=== PATIENT | male | born 1995 | race African-American/Black ===

== ENCOUNTER 2016-08-23 23:45 | Emergency (ER) | payer SELFPAY ==
[~2016-08-23] VITALS: Ht 165.1 cm; Wt 69.9 kg
[~2016-08-23 23:45] MED LIST: ADVAIR 100/501 DISK IH; AZITHROMYCIN250 MG PO; FLOVENT 44120 INHALA IH; IBUPROFEN600 MG PO; MEDROL DOSEPAK4 MG PO; PREDNISONE10 MG PO; PREDNISONE20 MG PO; PREDNISONE50 MG PO; PROAIR HFA8.5 GM IH; PROAIR RESPICL90 MCG IH; PROVENTIL HFA6.7 GM IH; PROVENTIL,2.5 MG/3 M IH; ROBITUSSIN AC,T10 ML PO; ULTRAM50 MG PO; VENTOLIN HFA18 GM IH; ZITHROMAX TRI-500 MG PO; ZITHROMAX Z-PA250 MG PO; ZITHROMAX250 MG PO; ZOFRAN ODT4 MG PO
[2016-08-24 01:02] LABS: ADD MIUA? YES; BILIRUBIN NEGATIVE; BLOOD NEGATIVE; COLOR YELLOW ((YELLOW)); GLUCOSE (STRIP) NEGATIVE; KETONES NEGATIVE; LEUKOCYTES LARGE; NITRITE NEGATIVE; PROTEIN (STRIP) 30; SPECIFIC GRAVITY 1.027 (1.000-1.030)
[2016-08-24 01:19] VITALS: BP 135/87
[2016-08-24 01:48] LABS: BACTERIA RARE; CASTS NONE SEEN /LPF; CRYSTALS NONE SEEN; EPITHELIAL CELLS RARE; MUCUS NONE SEEN; RED BLOOD CELLS NONE SEEN /HPF (0-5); UCUL ADDED? YES; WHITE BLOOD CELLS TNTC /HPF (0-5)
[2016-08-24 12:42] LABS: CHLAMYDIA TRACHOMATIS NEGATIVE; NEISSERIA GONORRHOEAE POSITIVE
== END 2016-08-24 01:19 | disposition home or self-care (01) ==
LOC: EME 23:45
PROVIDERS: Physician Assistant
DX: R36.9 Urethral discharge, unspecified (principal); Z20.2 Contact with and (suspected) exposure to infections with a predominantly sexual mode of transmission
CPT/HCPCS: 81003; 87086; 87491; 87591; 99281; 99284; J0696

== ENCOUNTER 2016-10-03 05:46 | Observation (INO) | payer SELFPAY ==
[~2016-10-03] VITALS: Ht 165.1 cm; Wt 70.4 kg
[2016-10-03 09:04] LABS: EOSINOPHIL (%) 2.4 % (0-5); EOSINOPHIL COUNT 0.3 K/uL (0-0.3); HEMATOCRIT 44.2 % (38.0-50.0); IMMATURE GRANULOCYTE (%) 0.2 % (0.0-0.7); IMMATURE GRANULOCYTE COUNT 0.2 K/uL; LYMPHOCYTE COUNT 1.5 K/uL (1.0-2.8); MCH 28.1 PG (29.0-34.0); MCHC 34.8 G/DL (30.0-36.0); MCV 80.5 FL (86-99); MEAN PLAT.VOLUME 10.1 uM^3 (9.0-12.4); MONOCYTE COUNT 0.6 K/uL (0-0.8); NEUTROPHIL (%) 79.3 % (45-76); NEUTROPHIL COUNT 9.4 K/uL (1.8-6.4); PLATELET COUNT 374 K/uL (156-360); RBC DIS.WIDTH-CV 12.1 % (11.8-14.6); RED BLOOD COUNT 5.49 M/uL (4.00-5.50); WHITE BLOOD COUNT 11.9 K/uL (4.1-10.2)
[2016-10-03 09:10] LABS: CHLORIDE 103 mEq/L (99-109); POTASSIUM 3.9 mEq/L (3.7-5.4); SODIUM 142 mEq/L (136-147)
[2016-10-03 09:11] LABS: GLUCOSE 100 mg/dL (70-99)
[2016-10-03 09:13] LABS: ANION GAP 14 MEQ/L (2-14)
[2016-10-03 09:15] LABS: GFR ESTIMATE (CALCULATED) > 59 mL/min/
[2016-10-03 09:16] LABS: UREA NITROGEN (BUN) 8 mg/dL (9-23)
[2016-10-03] MEDS ORDERED: DELTASONE20 M1 PO (10:32)
[2016-10-03 12:53] VITALS: BP 125/60
[2016-10-03 16:16] VITALS: BP 141/68
[2016-10-03 17:09] LABS: TROP-I INTERPRETATION NEGATIVE; TROPONIN-I < 0.01 ng/mL (0.0-0.30)
[2016-10-03 20:00] VITALS: BP 122/57
[2016-10-03 22:36] LABS: TROP-I INTERPRETATION NEGATIVE; TROPONIN-I < 0.01 ng/mL (0.0-0.30)
[2016-10-04] VITALS: BP 127/58
[2016-10-04 04:00] VITALS: BP 135/61
[2016-10-04 06:53] LABS: ALKALINE PHOSPHATASE 89 IU/L (3-129); ANION GAP 11 MEQ/L (2-14); CHLORIDE 103 MEQ/L (99-109); GFR ESTIMATE (CALCULATED) > 59 mL/min/; GLUCOSE 132 mg/dL (70-99); HEMATOCRIT 40.9 % (38.0-50.0); MCH 28.8 PG (29.0-34.0); MCHC 34.5 G/DL (30.0-36.0); MCV 83.5 FL (86-99); MEAN PLAT.VOLUME 10.7 uM^3 (9.0-12.4); PLATELET COUNT 406 K/uL (156-360); POTASSIUM 4.2 MEQ/L (3.7-5.4); RBC DIS.WIDTH-CV 12.6 % (11.8-14.6); RBC DIS.WIDTH-SD 37.6 % (39-53); SAMPLE HEMOLYSIS CHECK 0; SAMPLE ICTERIC CHECK 0; SAMPLE LIPEMIA CHECK 0; SODIUM 140 MEQ/L (136-147); TOTAL BILIRUBIN 0.3 MG/DL (0.0-1.0); UREA NITROGEN (BUN) 9 mg/dL (9-23)
[2016-10-04 06:54] LABS: WHITE BLOOD COUNT 15.7 K/uL (4.1-10.2)
[2016-10-04 09:14] VITALS: BP 122/55
[2016-10-04] MEDS ORDERED: VENTOLIN HFA18 GM IH (11:04)
== END 2016-10-04 11:38 | disposition home or self-care (01) ==
LOC: EME → EDBD 05:46 → EDOF 10:38 → 5WEST 10:38 → EDOF 11:53 → 5WEST 12:26
PROVIDERS: Emergency Medicine; Internal Medicine
DX: J45.901 Unspecified asthma with (acute) exacerbation (principal); F17.210 Nicotine dependence, cigarettes, uncomplicated
CPT/HCPCS: 71010; 80048; 80053; 84484; 85025; 85027; 93005; 94640; 94640 76; 94799; 99281; 99285; G0378; J1650; J2920; J7030; J7512; J7644

== ENCOUNTER 2017-01-02 12:18 | Emergency (ER) | payer SELFPAY ==
[~2017-01-02] VITALS: Ht 162.6 cm; Wt 70.4 kg
[~2017-01-02 12:18] MED LIST changes: +DELTASONE20 M1 PO
[2017-01-02] MEDS ORDERED: VENTOLIN HFA18 GM IH (15:23)
[2017-01-02 15:29] VITALS: BP 100/65
== END 2017-01-02 15:30 | disposition home or self-care (01) ==
LOC: EME 12:18
DX: J45.901 Unspecified asthma with (acute) exacerbation (principal); F17.200 Nicotine dependence, unspecified, uncomplicated
CPT/HCPCS: 71020; 94640; 94640 76; 99281; 99284; J1100

== ENCOUNTER 2017-01-13 10:32 | Emergency (ER) | payer SELFPAY ==
[~2017-01-13] VITALS: Ht 162.6 cm; Wt 69.8 kg
[2017-01-13] MEDS ORDERED: PROAIR HFA8.5 GM IH (13:49)
[2017-01-13] MEDS ORDERED: PREDNISONE50 MG PO (13:49)
[2017-01-13] MEDS ORDERED: ZITHROMAX Z-PA250 MG PO (13:49)
[2017-01-13 14:24] VITALS: BP 130/75
== END 2017-01-13 14:25 | disposition home or self-care (01) ==
LOC: EME → EDBD 10:32 → EME 10:32
DX: J45.901 Unspecified asthma with (acute) exacerbation (principal); F17.200 Nicotine dependence, unspecified, uncomplicated
CPT/HCPCS: 71010; 94640; 94640 76; 99281; 99284; J7512

== ENCOUNTER 2017-02-21 18:22 | Emergency (ER) | payer SELFPAY ==
[~2017-02-21] VITALS: Ht 165.1 cm; Wt 70.6 kg
[2017-02-21] MEDS ORDERED: PROAIR HFA8.5 GM IH (19:40)
[2017-02-21] MEDS ORDERED: PROVENTIL,2.5 MG/3 M IH (19:41)
[2017-02-21] MEDS ORDERED: PREDNISONE20 MG PO (20:24)
[2017-02-21] MEDS ORDERED: VENTOLIN HFA18 GM IH (20:24)
[2017-02-21 20:30] VITALS: BP 105/61
== END 2017-02-21 21:51 | disposition home or self-care (01) ==
LOC: EME 18:22
DX: J45.909 Unspecified asthma, uncomplicated (principal); F17.200 Nicotine dependence, unspecified, uncomplicated
CPT/HCPCS: 99281; 99284; J7512

== ENCOUNTER 2017-03-08 16:07 | Emergency (ER) | payer SELFPAY ==
[~2017-03-08] VITALS: Ht 165.1 cm; Wt 70.2 kg
[2017-03-08 16:25] VITALS: BP 145/82
[2017-03-08 17:12] LABS: ADD MIUA? YES; BILIRUBIN NEGATIVE; BLOOD NEGATIVE; COLOR YELLOW ((YELLOW)); GLUCOSE (STRIP) NEGATIVE; KETONES NEGATIVE; LEUKOCYTES NEGATIVE; NITRITE NEGATIVE; PROTEIN (STRIP) NEGATIVE; SPECIFIC GRAVITY 1.016 (1.000-1.030); UROBILINOGEN 0.2 MG/DL (0.2-1.0)
[2017-03-08 17:17] LABS: BACTERIA NONE SEEN /HPF; EPITHELIAL CELLS NONE SEEN /HPF; MUCUS TRACE /LPF; RED BLOOD CELLS 20-30 /HPF (0-5)
[2017-03-10 12:22] LABS: CHLAMYDIA TRACHOMATIS POSITIVE; NEISSERIA GONORRHOEAE POSITIVE
== END 2017-03-08 17:34 | disposition home or self-care (01) ==
LOC: EME 16:07
PROVIDERS: Physician Assistant
DX: A64 Unspecified sexually transmitted disease (principal); N34.2 Other urethritis; Z72.0 Tobacco use
CPT/HCPCS: 81003; 87491; 87591; 99281; 99284; J0696

== ENCOUNTER 2017-09-07 03:02 | Emergency (ER) | payer SELFPAY ==
[~2017-09-07] VITALS: Ht 165.1 cm; Wt 65.9 kg
[2017-09-07 03:31] LABS: HEMATOCRIT 42.5 % (38.0-50.0); HEMOGLOBIN 14.3 G/DL (12.5-16.6); MCH 28.1 PG (29.0-34.0); MCHC 33.6 G/DL (30.0-36.0); MCV 83.7 FL (86-99); PLATELET COUNT 257 K/uL (156-360); RBC DIS.WIDTH-CV 12.4 % (11.8-14.6); RBC DIS.WIDTH-SD 38.1 % (39-53); RED BLOOD COUNT 5.08 M/uL (4.00-5.50); WHITE BLOOD COUNT 6.8 K/uL (4.1-10.2)
[2017-09-07 03:42] LABS: CHLORIDE 102 mEq/L (99-109); POTASSIUM 3.3 mEq/L (3.7-5.4); SODIUM 140 mEq/L (136-147)
[2017-09-07 03:44] LABS: GLUCOSE 97 mg/dL (70-99)
[2017-09-07 03:48] LABS: GFR ESTIMATE (CALCULATED) > 59 mL/min/ (58.99-99999)
[2017-09-07 03:49] LABS: UREA NITROGEN (BUN) 12 mg/dL (9-23)
[2017-09-07 03:52] LABS: TROP-I INTERPRETATION NEGATIVE; TROPONIN-I < 0.01 ng/mL (0.0-0.30)
[2017-09-07] MEDS ORDERED: PROVENTIL HFA6.7 GM IH (04:45)
[2017-09-07] MEDS ORDERED: ZITHROMAX Z-PA250 MG PO (04:45)
[2017-09-07] MEDS ORDERED: PREDNISONE10 MG PO (04:45)
[2017-09-07 05:09] VITALS: BP 157/76
== END 2017-09-07 05:11 | disposition home or self-care (01) ==
LOC: EME 03:02
PROVIDERS: Emergency Medicine
DX: J45.901 Unspecified asthma with (acute) exacerbation (principal); R94.31 Abnormal electrocardiogram [ECG] [EKG]; F17.200 Nicotine dependence, unspecified, uncomplicated
CPT/HCPCS: 71045; 80048; 84484; 85027; 87502; 93005; 94644; 99281; 99284; J1100; J3475; J7644

== ENCOUNTER 2017-09-16 13:16 | Emergency (ER) | payer SELFPAY ==
[~2017-09-16] VITALS: Ht 165.1 cm; Wt 68.3 kg
[2017-09-16 13:57] LABS: SOURCE URINE
[2017-09-16 14:01] LABS: APPEARANCE CLEAR ((CLEAR)); BILIRUBIN NEGATIVE; BLOOD NEGATIVE; COLOR YELLOW ((YELLOW)); GLUCOSE (STRIP) NEGATIVE; KETONES NEGATIVE; LEUKOCYTES NEGATIVE; NITRITE NEGATIVE; PROTEIN (STRIP) NEGATIVE; UROBILINOGEN 0.2 MG/DL (0.2-1.0)
[2017-09-16] MEDS ORDERED: MOTRIN800 MG PO (14:38)
[2017-09-16] MEDS ORDERED: LIDODERM 5% P1 PATCH TD (14:38)
[2017-09-16 14:57] VITALS: BP 126/58
[2017-09-17 12:29] LABS: CHLAMYDIA TRACHOMATIS POSITIVE; NEISSERIA GONORRHOEAE NEGATIVE
== END 2017-09-16 14:58 | disposition home or self-care (01) ==
LOC: EME 13:16
PROVIDERS: Nurse Practitioner Family
DX: S39.012A Strain of muscle, fascia and tendon of lower back, initial encounter (principal); W00.0XXA Fall on same level due to ice and snow, initial encounter; Z72.89 Other problems related to lifestyle; Z11.3 Encounter for screening for infections with a predominantly sexual mode of transmission; J45.909 Unspecified asthma, uncomplicated; F17.200 Nicotine dependence, unspecified, uncomplicated
CPT/HCPCS: 81003; 87491; 87591; 99281; 99284

== ENCOUNTER 2017-09-21 18:38 | Emergency (ER) | payer SELFPAY ==
[~2017-09-21] VITALS: Ht 165.1 cm; Wt 65.7 kg
[~2017-09-21 18:38] MED LIST changes: +LIDODERM 5% P1 PATCH TD; +MOTRIN800 MG PO
[2017-09-21 20:04] VITALS: BP 140/83
[2017-09-22 09:55] LABS: TREPONEMA ANTIBODY NEGATIVE (NEGATIVE)
== END 2017-09-21 20:15 | disposition home or self-care (01) ==
LOC: EME 18:38
PROVIDERS: Nurse Practitioner Family
DX: A74.9 Chlamydial infection, unspecified (principal); R30.0 Dysuria; J45.909 Unspecified asthma, uncomplicated; F17.200 Nicotine dependence, unspecified, uncomplicated
CPT/HCPCS: 86780; 99281; 99284; J0561; J0696

== ENCOUNTER 2017-11-15 09:19 | Emergency (ER) | payer OTHER ==
[~2017-11-15] VITALS: Ht 162.6 cm; Wt 69.1 kg
[2017-11-15] MEDS ORDERED: VENTOLIN HFA18 GM IH (11:29)
[2017-11-15] MEDS ORDERED: PREDNISONE50 MG PO (11:29)
[2017-11-15 11:48] VITALS: BP 143/85
== END 2017-11-15 11:48 | disposition home or self-care (01) ==
LOC: EME 09:19
DX: J45.901 Unspecified asthma with (acute) exacerbation (principal); F17.210 Nicotine dependence, cigarettes, uncomplicated
CPT/HCPCS: 71046; 94640; 99281; 99283; J7512

== ENCOUNTER 2017-12-22 14:22 | Emergency (ER) | payer OTHER ==
[~2017-12-22] VITALS: Ht 165.1 cm; Wt 65.1 kg
[2017-12-22] MEDS ORDERED: TESSALON PERLE100 MG PO (15:47)
[2017-12-22] MEDS ORDERED: DELTASONE20 M1 PO (15:47)
[2017-12-22] MEDS ORDERED: PROVENTIL HFA6.7 GM IH (15:47)
[2017-12-22 15:59] VITALS: BP 138/81
== END 2017-12-22 16:05 | disposition home or self-care (01) ==
LOC: EME 14:22
DX: J45.901 Unspecified asthma with (acute) exacerbation (principal); J30.2 Other seasonal allergic rhinitis; F17.210 Nicotine dependence, cigarettes, uncomplicated
CPT/HCPCS: 94640; 99281; 99284; J7512

== ENCOUNTER 2018-03-19 07:09 | Emergency (ER) | payer OTHER ==
[~2018-03-19] VITALS: Ht 165.1 cm; Wt 65.9 kg
[~2018-03-19 07:09] MED LIST changes: +TESSALON PERLE100 MG PO
[2018-03-19 07:32] LABS: HEMATOCRIT 42.6 % (38.0-50.0); HEMOGLOBIN 14.9 G/DL (12.5-16.6); MCH 27.7 PG (29.0-34.0); MCV 79.3 FL (86-99); PLATELET COUNT 318 K/uL (156-360); RBC DIS.WIDTH-CV 12.5 % (11.8-14.6); RBC DIS.WIDTH-SD 35.4 % (39-53); RED BLOOD COUNT 5.37 M/uL (4.00-5.50); WHITE BLOOD COUNT 8.2 K/uL (4.1-10.2)
[2018-03-19 08:00] LABS: ALBUMIN 5.1 G/DL (3.2-4.8); CHLORIDE 101 MEQ/L (99-109); SODIUM 140 MEQ/L (136-147); TOTAL BILIRUBIN 0.6 MG/DL (0.0-1.0)
[2018-03-19 08:06] LABS: ALKALINE PHOSPHATASE 102 IU/L (3-129); ALT (GPT) 48 IU/L (3-49); AST (GOT) 34 IU/L (2-34); CREATININE 1.1 MG/DL (0.6-1.3); GFR ESTIMATE (CALCULATED) > 59 mL/min/ (58.99-99999); GLUCOSE 91 mg/dL (70-99); LIPASE 28 U/L (1.0-51.0); TOTAL PROTEIN 7.8 G/DL (6.4-8.3); UREA NITROGEN (BUN) 9 mg/dL (9-23)
[2018-03-19 09:50] LABS: AMPHETAMINE NEGATIVE (500 ng/mL); BARBITURATES NEGATIVE (200 ng/mL); BENZODIAZEPINES NEGATIVE (150 ng/mL); BUPRENORPHINE NEGATIVE (10 ng/mL); COCAINE PRESUMPTIVE POSITIVE (150 ng/mL); METHADONE PRESUMPTIVE POSITIVE (200 ng/mL); METHAMPHETAMINE NEGATIVE (500 ng/mL); OPIATES (MORPHINE) NEGATIVE (100 ng/mL); OXYCODONE NEGATIVE (100 ng/mL); PHENCYCLIDINE NEGATIVE (25 ng/mL); PROPOXYPHENE NEGATIVE (300 ng/mL); THC CANNABINOIDS PRESUMPTIVE POSITIVE (50 ng/mL); TRICYCLIC ANTIDEPRESSANTS NEGATIVE (300 ng/mL)
[2018-03-19] MEDS ORDERED: TRAZODONE HCL50 MG PO (10:01)
[2018-03-19] MEDS ORDERED: CATAPRES0.1 MG PO (10:01)
[2018-03-19 10:18] VITALS: BP 157/95
== END 2018-03-19 10:44 | disposition home or self-care (01) ==
LOC: EME 07:09
PROVIDERS: Nurse Practitioner Family
DX: R10.31 Right lower quadrant pain (principal); F11.23 Opioid dependence with withdrawal; J45.909 Unspecified asthma, uncomplicated; F17.200 Nicotine dependence, unspecified, uncomplicated
CPT/HCPCS: 74177; 80053; 83690; 84999; 85027; 99281; 99284; J2405; J3010; J7030

== ENCOUNTER 2018-04-06 20:06 | Emergency (ER) | payer OTHER ==
[~2018-04-06] VITALS: Ht 165.1 cm; Wt 65.8 kg
[~2018-04-06 20:06] MED LIST changes: +CATAPRES0.1 MG PO; +TRAZODONE HCL50 MG PO
[2018-04-06] MEDS ORDERED: LIDOCAINE20 MG/1 M5 MM (22:24)
[2018-04-06] MEDS ORDERED: VIBRAMYCIN100 MG PO (22:24)
[2018-04-06] MEDS ORDERED: NORCO 7.5/321 TABLET PO (22:26)
[2018-04-06] MEDS ORDERED: MOTRIN800 MG PO (22:26)
[2018-04-06 22:44] VITALS: BP 155/87
[2018-04-07 12:29] LABS: TREPONEMA ANTIBODY POSITIVE (NEGATIVE)
[2018-04-09 14:27] LABS: TREPONEMA PALLIDUM PART AGGL Reactive (Nonreactive)
[2018-04-09 17:56] LABS: RPR SCREEN Reactive (Nonreactive); RPR TITER Reactive 1:32 (())
== END 2018-04-06 22:44 | disposition home or self-care (01) ==
LOC: EME 20:06
PROVIDERS: Physician Assistant
DX: N48.5 Ulcer of penis (principal); R30.0 Dysuria; Z11.3 Encounter for screening for infections with a predominantly sexual mode of transmission; J45.909 Unspecified asthma, uncomplicated; F17.200 Nicotine dependence, unspecified, uncomplicated
CPT/HCPCS: 86592 90; 86593 90; 86780; 86780 90; 87254; 87491; 87591; 99281; 99283; J0696